=== PATIENT | female | born 1940 | race Caucasian/White ===

== ENCOUNTER 2019-10-19 09:03 | Outpatient (CLI) | payer MEDICARE, SELFPAY ==
--- NOTE | 2019-10-19 09:11 | MM_ITS ---
WS: [id number] BILATERAL SCREENING DIGITAL MAMMOGRAM WITH CAD HISTORY: SCREENING COMPARISON: 06/23/2018, 07/06/2017, 05/27/2016 Bilateral CC and MLO views submitted. Computer aided detection analyzed. Breast composition: There are scattered areas of fibroglandular density. No suspicious masses, microc alcifications or architectural distortion. There are numerous scattered asymmetries within each breas t which have been stable over multiple years. Some of these are probably lymph nodes. MM/[place] [id number] IMPRESSION: BI-RADS: 2-Benign FOLLOW UP: 1 Year Follow-up
== END 2019-10-19 09:04 | disposition home or self-care (01) ==
LOC: RADSHAW 09:09
PROVIDERS: PCP Family Medicine; Visit Provider Family Medicine
DX: Z12.31 Encounter for screening mammogram for malignant neoplasm of breast (principal)
CPT/HCPCS: 77067

== ENCOUNTER → 2020-03-14 11:47 | Outpatient (BNVA) | payer MEDICARE, SELFPAY | PROVIDERS: PCP Family Medicine; Visit Provider Nurse Practitioner Family | DX: Z11.59 Encounter for screening for other viral diseases (principal); J06.9 Acute upper respiratory infection, unspecified | CPT/HCPCS: 87635 ==

== ENCOUNTER 2020-11-20 08:10 | Outpatient (CLI) | payer MEDICARE, SELFPAY ==
--- NOTE | 2020-11-20 08:46 | MM_ITS ---
WS: [id number] BILATERAL DIGITAL SCREENING MAMMOGRAPHY WITH CAD CLINICAL INFORMATION: SCREENING HISTORY: Screening mammogram. No current complaints. COMPARISON: October 19, 2019 TECHNIQUE: Bilateral CC and MLO views. FINDINGS: Scattered fibroglandular densities bilaterally. New small clusters of punctate calcifications lower o uter right breast. Recommend spot magnification views for further evaluation. Left breast is unchanged. MM/[place] [id number] IMPRESSION: BI-RADS: 0-Incomplete: Need additional imaging evaluation FOLLOW UP: Need Additional Imaging RECOMMEND SPOT MAGNIFICATION VIEWS OF THE CALCIFICATIONS RIGHT BREAST.
== END 2020-11-20 08:11 | disposition home or self-care (01) ==
LOC: RADSHAW 08:14
PROVIDERS: PCP Family Medicine; Visit Provider Family Medicine
DX: Z12.31 Encounter for screening mammogram for malignant neoplasm of breast (principal)
CPT/HCPCS: 77067

== ENCOUNTER 2020-11-27 08:29 | Outpatient (CLI) | payer MEDICARE, SELFPAY ==
--- NOTE | 2020-11-27 08:52 | MM_ITS ---
WS: [id number] RIGHT DIGITAL MAMMOGRAPHY WITH CAD CLINICAL INFORMATION: RIGHT BREAST CALCIFICATION COMPARISON: November 20, 2020 TECHNIQUE: 4 views of the right breast were obtained. FINDINGS: Scattered fibroglandular densities of the right breast. Previously described cluster calcifications i n the right breast are less conspicuous today. A few faint punctate calcifications probably benign. Recommend six-month follow-up to confirm stability. SIX-MONTH FOLLOW-UP RIGHT DIAGNOSTIC MAMMOGRAPHY WITH SPOT MAGNIFICATION VIEWS. MM/[place] [id number] IMPRESSION: BI-RADS: 3-Probably Benign FOLLOW UP: 6 Month Follow-up
== END 2020-11-27 08:30 | disposition home or self-care (01) ==
LOC: RADSHAW 08:31
PROVIDERS: PCP Family Medicine; Visit Provider Family Medicine
DX: R92.1 Mammographic calcification found on diagnostic imaging of breast (principal)
CPT/HCPCS: 77065

== ENCOUNTER → 2021-05-18 17:08 | Outpatient (BNVA) | payer MEDICARE, SELFPAY | PROVIDERS: PCP Family Medicine; Visit Provider Nurse Practitioner | DX: J06.9 Acute upper respiratory infection, unspecified (principal); Z20.822 Contact with and (suspected) exposure to COVID-19 | CPT/HCPCS: 87400; 87635 ==

== ENCOUNTER 2021-06-07 11:22 | Outpatient (CLI) | payer MEDICARE, SELFPAY ==
--- NOTE | 2021-06-07 11:36 | MM_ITS ---
WS: [id number] DIAGNOSTIC RIGHT DIGITAL MAMMOGRAM WITH CAD HISTORY: RIGHT BREAST CALCIFICATION COMPARISON: 11/27/2020, 11/20/2020 and 11/15/2019 and 06/23/2018 Technique: CC, MLO and ML views. Magnification views RIGHT CC and MLO. Breast composition: There are scattered areas of fibroglandular density. Previously described calcif ications have become much less conspicuous. Some of these calcifications may have been related to vas cular calcifications. There are additional scattered multiple nodules throughout the breast which hav e been present on prior studies. MM/[place] [id number] IMPRESSION: BI-RADS: 3-Probably Benign FOLLOW UP: 6 Month Follow-up Favor these calcifications are benign as they have significantly decreased sinc e the prior study. Patient should return to annual mammogram in November 2021.
== END 2021-06-07 11:23 | disposition home or self-care (01) ==
LOC: RADSHAW 11:35
PROVIDERS: PCP Family Medicine; Visit Provider Family Medicine
DX: R92.1 Mammographic calcification found on diagnostic imaging of breast (principal)
CPT/HCPCS: 77065